=== PATIENT | female | born 1950 | race Hispanic/Latino ===

== ENCOUNTER 2024-12-19 20:27 | Inpatient (IN) | payer OTHER, SELFPAY ==
[2024-12-19] VITALS (10 sets, daily range): BP systolic 89–127; BP diastolic 47–88; BMI 26.6
[2024-12-19 16:36] LABS: ALT (SGPT) 20 U/L (0-35); AST (SGOT) 24 U/L (14-36); Albumin 4.1 g/dl (3.5-5.0); Alkaline Phosphatase 82 U/L (38-126); Blood Urea Nitrogen 13 mg/dl (7-17); Calcium 8.8 mg/dl (8.4-10.2); Carbon Dioxide 23 mmol/L (22-30); Chloride 97 mmol/L (98-107); Glucose 133 mg/dl (70-99); Potassium 3.6 mmol/L (3.5-5.1); Sodium 131 mmol/L (135-145); Total Bilirubin 1.3 mg/dl (0.2-1.3); eGFR > 60.00
[2024-12-19 16:44] LABS: % Basophils 0.3 % (0-2); % Immature Granulocytes 0.9 % (0-0.5); % Monocytes 6.2 % (1.7-9.3); % Neutrophils 84.6 % (42.2-75.2); Absolute Basophils 0.1 10^3/uL (0-0.2); Absolute Immature Granulocytes 0.2 10^3/uL (0-0.05); Absolute Lymphocytes 1.7 10^3/uL (1.2-3.4); Absolute Monocytes 1.3 10^3/uL (0.1-0.6); Absolute Neutrophils 17.7 10^3/uL (1.4-6.5); COVID-19 Antigen Negative (Negative); Hematocrit 33.2 % (37.0-47.0); Hemoglobin 11.3 g/dL (12.0-16.0); Mean Corpuscular Hgb 28.8 pg (27.0-31.0); Mean Corpuscular Volume 84.7 fL (81.0-99.0); Mean Platelet Volume 8.6 fL (7.4-10.4); Nucleated Red Blood Cells % 0 %; Platelet Count 281 10^3/uL (130-400); Red Blood Cell Count 3.92 10^6/uL (4.20-5.40); Troponin I < 0.012 ng/ml; White Blood Cell Count 20.9 10^3/uL (4.8-10.8)
[2024-12-19] MEDS: NSS 1000 IV ×2 (18:00→23:38)
--- NOTE | 2024-12-19 18:00 | ED.GENMED ---
History of Present Illness
General
Chief Complaint: Chest Pain
Source: patient
Exam Limitations: none
Time Seen by Provider: 12/19/24 17:31
Nursing documentation reviewed up to this point in time: agreed with
History of Present Illness
History of Present Illness:
Patient is a 74-year-old female with history hypertension, hyperlipidemia presenting to the emergency department via EMS from PCP with multiple complaints today. Patient states that yesterday morning she started with fever, diffuse abdominal pain,
and severe diarrhea. Later in the day she then noticed pain into her left chest. Pain is worse with deep inspiration. Patient denies any significant cough. Patient denies any vomiting although does feel nauseous. She denies any urinary
complaints.
Patient was seen by her primary care today where she supposedly had a normal EKG although primary care was concerned and sent her to the emergency department for further evaluation.
Patient does report a history of pneumonia in the past.
Review of Systems
Review of Systems
Allergies reviewed?: Yes
All Other Systems: ROS reviewed and negative except as documented in HPI and ROS
Phy Exam
Physical Exam
Physical Exam:
Vitals: BP soft, tachycardic, temp 99.5
General: Patient is in no apparent distress
Skin: Warm and dry, no rashes or lesions
Head: Normocephalic, atraumatic
Eyes: Sclera nonicteric. EOMs intact. No nystagmus.
Throat: Dry mucous membranes. Protecting airway
Neck: Normal ROM, no cervical spine tenderness, no meningismus
Cardiac: Tachycardic, normal rhythm, no murmurs.
Pulm: Tachypneic, lungs clear bilaterally. Not hypoxic
Abdomen: Abdomen soft. Mild diffuse abdominal tenderness without rebound tenderness or guarding.
Extremities: No evidence of cyanosis or edema. Palpable DP pulses bilaterally
Neuro: AAOx3. Grossly intact.
Psychiatric: Normal affect.
Scores
Heart Score for Chest Pain Patients
STEMI patient?: No
History: Slightly or Non-Suspicious
ECG: Nonspecific Repolarization
Age: >/= 65 years
Risk Factors: 1 or 2 Risk Factors
Troponin: </= Normal Limit
Heart Score for Chest Pain Patients: 4
Heart Score Risk: 20.3% MACE over next 6 weeks
Course
Orders/Labs/Results
Orders:
Orders
12/19/24 Dinner
NPO
Allow oral meds: Yes
Allow clear liquids: Sips of Clears
12/19/24 15:54
Electrocardiogram (*1) Urgent
Reason for Study: Chest Pain
EKG- Treatment ONCE
12/19/24 16:07
COVID-19 Antigen Urgent
Source: Nasal Swab
Complete Blood Count/With Diff Urgent
Comprehensive Metabolic Panel Urgent
Troponin I Urgent
Influenza A+B Rapid Molecular Urgent
HUMBERTO Source: Nasal Swab
Specimen Description:
12/19/24 17:44
0.9% Sodium Chloride 1000 ml [Nss] 1,000 ml IV BOLUS
Ketorolac [Toradol] 15 mg IV NOW STA
CR Chest - 2 Views Urgent
Comment:
Reason For Exam: left sided chest pain, cough
12/19/24 17:46
CT Abd/pelvis W Iv Cont Urgent
Comment:
Reason For Exam: diffuse abdominal pain, diarrhea, fever
D-Dimer Urgent
Lactic Acid Urgent
12/19/24 17:47
Blood Culture Urgent
HUMBERTO Source: Blood/Venous
Specimen Description:
Date Specimen was Collected: 12/19/24
Time Specimen was Collected: 17:45
12/19/24 19:44
Azithromycin 500 mg/250 ml [Zithromax Infusion] 500 mg in 250 ml IV NOW
CefTRIAXone [Rocephin] 1,000 mg IV NOW STA
12/19/24 19:47
Norovirus by PCR Urgent
HUMBERTO Source: Feces/Stool
Specimen Description:
12/19/24 20:11
Admit/Transfer Patient As Directed
Co-Sign Provider:
Level of Care: Inpatient admission
Assign to:: Medical/Surgical
Physician / Group: sruthi
Diagnosis: sepsis
Reason for Hospitalization: sepsis pnuemonia, gastroenteritis
Expected length of stay greater than two midnights?: Yes
ELOS- Estimated Length of Stay in days: 2
I certify the patient meets the requirements for IP care: Yes
PRN Pain Medication Management As Directed
May give lesser potent ordered pain med per pt: Yes
preference::
Protocol:: Medication orders for pain may be administered in a
manner that supports deferring to patient preference
when the pt is:
- Requesting an ordered lesser potent pain medication.
Least to most potent pain medications are defined
as: acetaminophen < NSAID < tramadol < opioids
(morphine, oxycodone, hydromorphone).
- Requesting a lesser dose of the same medication IF
ORDERED.
- Requesting a less intrusive route of administration
if both routes are prescribed by the provider (PO <
IV).
12/19/24 20:12
Code Status As Directed
Resuscitation Status: Full Code
12/19/24 20:15
Stool Culture Urgent
HUMBERTO Source: Feces/Stool
Specimen Description:
12/19/24 20:42
Urinalysis Reflex To Culture Urgent
Date Specimen was Collected: 12/19/24
Time Specimen was Collected: 20:42
12/19/24 21:13
0.9% Sodium Chloride 1000 ml [Nss] 1,000 ml IV 100 mls/hr
Acetaminophen [Tylenol] 650 mg PO Q4HPRN PRN
Albuterol [ProAIR HFA INHALER] 2 puff INH R Q6HPRN PRN
Ondansetron Injectable [Zofran] 4 mg IV Q6HPRN PRN
triamcinolone acetonide 1 applic TOPICAL BIDPRN PRN
12/19/24 21:13
Activity As Directed
Activity Level: As Tolerated
Vital Signs As Directed
Frequency: Per unit guidelines
DX Deep Vein Thrombosis Video Routine
12/19/24 22:00
Atorvastatin [Lipitor] 10 mg PO HS
Meloxicam [Mobic] 7.5 mg PO HS
12/19/24 22:16
Carboxymethylcellulose [Refresh Celluvisc Gel] 1 drops BOTH EYES DAILYPRN PRN
12/20/24 06:00
Complete Blood Count/With Diff IN AM
Comprehensive Metabolic Panel IN AM
12/20/24 08:00
FLUTICASONE PROPIONATE 110 mcg [Flovent 110 Mcg Inhaler] 1 puff INH R BID
Heparin 5,000 units SC Q12
12/20/24 20:00
Azithromycin 500 mg/250 ml [Zithromax Infusion] 500 mg in 250 ml IV Q24H
CefTRIAXone [Rocephin] 1,000 mg IV Q24H
Abnormal Lab Results
12/19/24 12/19/24
16:07 17:46
WBC 20.9 H 10^3/uL
(4.8-10.8)
RBC 3.92 L 10^6/uL
(4.20-5.40)
Hgb 11.3 L g/dL
(12.0-16.0)
Hct 33.2 L %
(37.0-47.0)
Abs Immat Gran (auto) 0.2 H 10^3/uL
(0-0.05)
Absolute Neuts (auto) 17.7 H 10^3/uL
(1.4-6.5)
Absolute Monos (auto) 1.3 H 10^3/uL
(0.1-0.6)
Immature Gran % 0.9 H %
(0-0.5)
Neutrophils % 84.6 H %
(42.2-75.2)
Lymphocytes % 8.0 L %
(20.5-51.1)
D-Dimer 0.83 H ug/mlFEU
(0.00-0.50)
Sodium 131 L mmol/L
(135-145)
Chloride 97 L mmol/L
(98-107)
Glucose 133 H mg/dl
(70-99)
12/19/24 16:07
12/19/24 16:07
Vital Signs
Initial and Last Documented VS:
Initial Vital Signs
Temp Pulse Resp BP Pulse Ox
99.5 F 106 18 126/66 98
12/19/24 15:48 12/19/24 15:48 12/19/24 15:48 12/19/24 15:48 12/19/24 15:48
Last Documented Vital Signs
Temp Pulse Resp BP Pulse Ox
97.8 F 80 16 100/61 98
12/19/24 23:50 12/20/24 00:01 12/20/24 00:01 12/19/24 22:28 12/20/24 00:01
MDM/Problems Addressed
Differential Diagnosis Includes:
Not limited to: Sepsis, diverticulitis, appendicitis, cholecystitis, pneumonia, pericarditis, pulmonary embolism, etc.
MDM/Problems Addressed:
74-year-old presenting with fever, abdominal pain, diarrhea since yesterday. Also reports chest pain starting yesterday. No shortness of breath or vomiting. BP soft on arrival and tachycardic. Otherwise vital signs stable. Physical exam as
above. Patient appears dry. Tachycardic, with normal sinus rhythm. Lungs clear bilaterally on exam. Abdomen soft with diffuse abdominal tenderness. Labs initiated in triage significant for a leukocytosis of 20.9. Chemistry shows mild
hyponatremia. Differential broad although concern for sepsis given vital signs and leukocytosis. Given chest pain which is described as pleuritic�will check troponin, D-dimer, and chest x-ray. Will obtain CT imaging of abdomen/pelvis, as well and
check urinalysis. Will add on lactic acid and blood cultures. Patient given a liter of IV fluids and dose of Toradol. Will closely monitor and reassess.
Update: Troponin undetectable. D-dimer very mildly elevated once age-adjusted. Lactic acid normal CT abdomen/pelvis report reveals likely enteritis without other acute process. Chest x-ray with opacity in left upper lobe suspicious for possible
pneumonia. Given pneumonia visualized on x-ray�this would explain patient's chest discomfort. Unlikely very low suspicion for PE at this point. Will hold on CT scan as patient has already received a full contrast load with CT abdomen/pelvis. GI
symptoms likely from viral gastroenteritis. Patient does meet sepsis criteria with tachycardia, tachypnea, leukocytosis, and pneumonia on imaging. She remains mildly tachycardic despite IV fluids. Ultimately�feel patient should be admitted for
further fluid resuscitation, IV antibiotics. Will give IV Rocephin/azithromycin in emergency department. Patient accepted to hospital service in stable condition with urinalysis pending. Case seen with attending physician.
Chronic conditions affecting care:
Hypertension
Acute Exacerbation and/or Progression of Chronic Illness:
Pneumonia
*Radiology
Radiology exam reviewed: preliminary read by ED provider (Chest x-ray reviewed by me-opacity in left upper lobe) and radiology read reviewed
*Pulse Oximetry
Patient hypoxic: no
*EKG
Interpreted by ED Provider?: Yes
EKG Intrepretation Date: 12/19/24
Interpretation: abnormal
Comparison EKG: no comparison EKG present
Heart Rate: 104
Rate: tachycardiac
Rhythm: sinus
[place]: normal axis
Interval: normal QT interval
QRS Pattern: normal QRS
Ischemia: non-specific ST changes
*[employer] Teacher Interpretation
Rate: tachycardiac
Interpretation: abnormal
Heart Rate: 108
Rhythm: sinus
*Critical Care Note
Total Time (30-74mins, 75-104mins- exclusive of procedures): Not Applicable
Patient Management
Discussion with other providers: Hospitalist
Escalation/DeEscalation of care consider admission/obs:
Admit for IV antibiotics, further fluid resuscitation
ED Attending Note
-
Portions of this chart may have been created with voice recognition software.� Occasional wrong word or��sound alike� substitutions may have occurred due to the inherent limitations of voice recognition software.
Discharge Plan
Departure
Patient Disposition: Admit
Date of Disposition: 12/19/24
Time of Disposition: 19:47
Presentation/result/management discussed w/ accepting MD/DO: Hospitalist
Condition: Good
Covid-19: Negative COVID-19
Discharge Problem:
Sepsis, Community acquired pneumonia, Enteritis
Interventions
Interventions:
*Risk Screen - Suicide Last Done: 12/19/24 15:53
*General Assessment Last Done: 12/19/24 15:48
*Neglect/Abuse Screening Last Done: 12/19/24 15:48
*ED- Fall Risk Assessment Last Done: 12/19/24 17:49
*ED COVID-19 Vaccine History Last Done: 12/19/24 17:49
ED- Cardiac Assessment Last Done: 12/19/24 17:49
[2024-12-19 18:10] LABS: D-Dimer 0.83 ug/mlFEU (0.00-0.50); Lactic Acid 1.6 mmol/L (0.7-2.0)
[2024-12-19] MEDS: TORADOL 15 MG IV (18:30)
--- NOTE | 2024-12-19 20:15 | HPS.HSE ---
Addendum entered and electronically signed by Mindy Kee MD 12/19/24 22:46:
Age adjusted D-dimer higher than cutoff of 0.73. However presentation suggesting low pretest probability of PE.
Original Note:
Family Physician
-
Family Physician: Hilda Escalante MD
Chief Complaint
-
diarrhea, vomiting, shortness of breath
History of Present Illness
74-year-old female past medical history of hypertension, COPD, hyperlipidemia, presenting with chest pain worse with breathing, slight cough, fever, abdominal pain and diarrhea starting yesterday. Denies any recent travel or restaurant food. No
sick contacts. No recent antibiotics.
She states she had pneumonia last year.
She denies any smoking history in the past. Denies alcohol.
Medical History
Past Medical History
Past Medical History: Reports Other (hypertension, COPD, hyperlipidemia,)
Past Surgical History: Reports Other (Hernia repair)
Social History
Tobacco: Non-smoker
Alcohol: None
Drug: None
Family History
Family History: Not pertinent
Allergies / Home Medications
Allergies reflects when Allergies were last updated in [facility].
Home Medications with original date entered in [facility]
Allergy/Medication List:
Allergies
Allergy/AdvReac Type Severity Reaction Status Date / Time
No Known Allergies Allergy Unverified 12/19/24 15:48
Home Medications
acetaminophen 500 mg tablet (Tylenol Extra Strength) 500 mg PO Q6HPRN PRN mild pain 12/19/24
albuterol sulfate 90 mcg/actuation aerosol inhaler 2 puff inhalation R Q6HPRN PRN sob 12/19/24
amlodipine 5 mg tablet 5 mg PO HS 12/19/24
atorvastatin 10 mg tablet 10 mg PO HS 12/19/24
carboxymethylcellulose sodium 0.5 % eye drops (Refresh Tears) 1 drp BOTH EYES DAILYPRN PRN dry eyes 12/19/24
fluticasone propionate 110 mcg/actuation HFA aerosol inhaler 1 puff inhalation R BID 12/19/24
meloxicam 7.5 mg tablet 7.5 mg PO HS 12/19/24
triamcinolone acetonide 0.1 % dental paste 1 applic dental BIDPRN PRN mouth sore 12/19/24
Review of Systems
-
History Source: Patient
A 12 point ROS was completed and negative except as noted: Yes
Constitutional: Reports No Symptoms
EENT: Reports No Symptoms
Respiratory: Reports See HPI
Cardiac: Reports No Symptoms
Abdomen/GI: Reports See HPI
: Reports No Symptoms
Musculoskeletal: Reports No Symptoms
Skin: Reports No Symptoms
Neurological: Reports No Symptoms
Endocrine: Reports No Symptoms
Hematologic/Lymphatic: Reports No Symptoms
Psych: Reports No Symptoms
Physical Exam
Vital Signs
Vital Signs
Temp Pulse Resp BP Pulse Ox
99.5 F 84 36 126/55 96
12/19/24 15:48 12/19/24 19:30 12/19/24 19:30 12/19/24 19:00 12/19/24 19:30
Physical Exam
General: Well Developed, Well Nourished and No Apparent Distress
HEENT: NormoCephalic, Moist mucous membranes and Atraumatic
Respiratory: Clear
Cardiac: S1/S2 and Regular Rhythm; No Murmur or Rub
GI: Soft, Non Distended, Normal Bowel Sounds and Tender (diffusely); No Organomegaly
Rectal: Deferred by Provider
Musculoskeletal: No Clubbing, No Cyanosis and No Edema
Skin: No Rash
Neuro: Nonfocal/grossly intact
Laboratory Results
-
12/19/24 16:07
12/19/24 16:07
Laboratory Results
Lactic Acid 1.6 mmol/L (0.7-2.0) 12/19/24 17:46
Total Bilirubin 1.3 mg/dl (0.2-1.3) 12/19/24 16:07
AST 24 U/L (14-36) 12/19/24 16:07
ALT 20 U/L (0-35) 12/19/24 16:07
Alkaline Phosphatase 82 U/L (38-126) 12/19/24 16:07
Troponin I Cancelled 12/19/24 17:46
Data Reviewed
-
Lab Data: Labs Reviewed by me
Old Records: Reviewed
Impression/Plan
-
IMPRESSION:
PLAN:
# Sepsis (leukocytosis, tachycardia, hypotension) secondary to community-acquired pneumonia/gastroenteritis
-See individually below
# Acute gastroenteritis likely viral
-CT abdomen pelvis shows no obstruction, possible enteritis
-N.p.o.
-IV fluids
-Blood cultures pending
-Stool studies pending
# Community-acquired pneumonia
-COVID and influenza negative
-Ceftriaxone/azithromycin
Essential hypertension
-Hold amlodipine
COPD
-Continue albuterol
Hyperlipidemia
-Continue statin
Full code
DVT prophylaxis�heparin
N.p.o.
[2024-12-19] MEDS: ROCEPHIN 1000 MG IV (20:34)
[2024-12-19] MEDS: ZITHROMAX INFUSION 250 IV (20:35)
[2024-12-19 20:50] LABS: Urine Albumin 3+ (Neg - Trace); Urine Bilirubin Negative (Negative); Urine Character Clear (Clear); Urine Color Yellow; Urine Glucose Negative (Negative); Urine Ketone 2+ (Negative); Urine Leukocyte 2+ (Negative); Urine Nitrite Negative (Negative); Urine Occult Blood 2+ (Negative); Urine Urobilinogen 1+ (Neg - 1+)
[2024-12-19 20:58] LABS: Urine Bacteria Many (Negative)
[2024-12-19] MEDS: LIPITOR 10 MG PO (23:38)
[2024-12-19] MEDS: MOBIC 7.5 MG PO (23:38)
[2024-12-19] MEDS: TYLENOL 650 MG PO (23:44)
[2024-12-19] MEDS: FLOVENT 110 MCG INHALER 1 PUFF INH (23:57)
[2024-12-19] MEDS: ProAIR HFA INHALER 2 PUFF INH (23:57)
[2024-12-20 05:16] LABS: % Basophils 0.3 % (0-2); % Immature Granulocytes 0.7 % (0-0.5); % Lymphocytes 7.8 % (20.5-51.1); % Monocytes 6.9 % (1.7-9.3); % Neutrophils 84.3 % (42.2-75.2); Absolute Basophils 0.1 10^3/uL (0-0.2); Absolute Immature Granulocytes 0.1 10^3/uL (0-0.05); Absolute Lymphocytes 1.3 10^3/uL (1.2-3.4); Absolute Monocytes 1.1 10^3/uL (0.1-0.6); Absolute Neutrophils 13.7 10^3/uL (1.4-6.5); Hematocrit 28.2 % (37.0-47.0); Hemoglobin 9.2 g/dL (12.0-16.0); Mean Corp Hgb Conc. 32.6 g/dL (33.0-37.0); Mean Corpuscular Hgb 28.8 pg (27.0-31.0); Mean Corpuscular Volume 88.1 fL (81.0-99.0); Mean Platelet Volume 8.5 fL (7.4-10.4); Nucleated Red Blood Cells % 0 %; Platelet Count 199 10^3/uL (130-400); Red Cell Dist. Width 13.2 % (11.5-14.5); White Blood Cell Count 16.2 10^3/uL (4.8-10.8)
[2024-12-20 06:16] LABS: ALT (SGPT) 15 U/L (0-35); AST (SGOT) 19 U/L (14-36); Albumin 2.9 g/dl (3.5-5.0); Alkaline Phosphatase 64 U/L (38-126); Blood Urea Nitrogen 15 mg/dl (7-17); Carbon Dioxide 21 mmol/L (22-30); Chloride 105 mmol/L (98-107); Estimated Creatinine Clearance 49 ml/min; Glucose 107 mg/dl (70-99); Potassium 3.3 mmol/L (3.5-5.1); Sodium 133 mmol/L (135-145); Total Protein 5.2 g/dl (6.3-8.2); eGFR > 60.00
[2024-12-20] MEDS: FLOVENT 110 MCG INHALER 1 PUFF INH ×2 (07:38→19:29)
[2024-12-20 08:00] VITALS: BP 106/61
[2024-12-20] MEDS: HEPARIN 5000 UNITS SC ×2 (08:01→20:38)
[2024-12-20] MEDS: NSS IV (08:06)
[2024-12-20] MEDS: NSS 1000 IV ×2 (10:29→20:29)
--- NOTE | 2024-12-20 11:12 | W.PN.HOSP.TC ---
Today's Communication/Plan
-
Antibiotics pending cultures.
Chest CT PE protocol.
IV fluids, monitoring for recurrent hypotension
Hold Norvasc
Assessment / Plan
Assessment / Plan
Impression:
Community-acquired pneumonia.
Mild elevation of D-dimer
Suspected acute gastroenteritis, possibly viral.
COPD.
Essential hypertension
Dyslipidemia
Plan:
Community-acquired pneumonia
Chest x-ray with left upper lobe infiltrate
Sepsis present on admission
Hypotension responding to IV fluid bolus
CURB-65 3 with 17% mortality risk warrants inpatient admission
Respiratory status stable with no requirements for supplemental oxygen
Continue antibiotics: Ceftriaxone and Zithromax
Continue mucolytic's
COPD
Unknown staging
Primary pulmonology Dr Jason Dewitt [facility] [phone]
Exam with no evidence of bronchospasm
Respiratory status stable.
Continue albuterol,
Continue inhaled steroids/fluticasone
Mild D-dimer elevation
Tachycardia and hypotension responding to IV fluids.
Hypotension and tachycardia on admission likely related to infection.
Check CT PE protocol
Reported loose stools.
Concern for viral gastroenteritis.
Reports no recent travel or antibiotic administration
Stool negative for norovirus.
Follow stool cultures.
Essential hypertension
On amlodipine. Hold given hypotension.
Dyslipidemia
Continue atorvastatin
Anticipated Discharge: 24 - 48 hours
Subjective/Interval History
-
Date of Service: December 20, 2024
Objective Data
-
Labs:
Laboratory Results
12/20/24
05:03
WBC 16.2 H
Hgb 9.2 L
Hct 28.2 L
Plt Count 199 D
Sodium 133 L
Potassium 3.3 L
Chloride 105
Carbon Dioxide 21 L
BUN 15
Creatinine 0.8
Glucose 107 H
Calcium 8.0 L
Total Bilirubin 1.0
AST 19
ALT 15
Alkaline Phosphatase 64
Vital Signs:
Vital Signs
Temp Pulse Resp BP Pulse Ox
97.9 F 71 16 106/61 98
12/20/24 08:00 12/20/24 07:46 12/20/24 07:46 12/20/24 08:00 12/20/24 08:00
Physical Exam
-
General: Well Developed and No Apparent Distress
HEENT: Normocephalic, Atraumatic and Moist Mucous Membranes
Respiratory: Clear to Auscultation
Cardiac: Regular Rhythm and S1/S2; Negative Murmur, Rub or Gallop
GI: Soft, Nontender, Nondistended and Normal Bowel Sounds; Negative Organomegaly
Rectal: Deferred by Provider
Musculoskeletal: No Clubbing, No Cyanosis and No Edema
Skin: Negative Rash
Neuro: Nonfocal/Grossly Intact
[2024-12-20] MEDS: KCL 40 MEQ PO (12:06)
[2024-12-20 15:15] VITALS: BP 136/75
--- NOTE | 2024-12-20 16:45 | TRANSFER ---
Pt being transported to floor in ed stretcher by PCT. daughter accompanying pt. reports has been sent. IVF continue to infuse without issue. plan of care continues to be followed.
[2024-12-20 16:57] VITALS: BP 155/82; BMI 24.0
--- NOTE | 2024-12-20 17:31 | PTCARENOTE ---
Received patient from ER accompanied by daughter awake alert and oriented. Oriented to room, able to have sips of clears. Patient states she has had stomach cramping and pain over last few days. Had 3 episodes loose stools so far today. Denies
any chest pain . In no distress at present. Call hickman in reach.
[2024-12-20] MEDS: STERILE WATER FOR INJECTION 10 ML IV (20:35)
[2024-12-20] MEDS: ROCEPHIN 1000 MG IV (20:38)
[2024-12-20] MEDS: ZITHROMAX INFUSION 250 IV (20:38)
[2024-12-20] MEDS: MOBIC 7.5 MG PO (21:18)
[2024-12-20] MEDS: LIPITOR 10 MG PO (21:18)
[2024-12-20 23:00] VITALS: BP 129/93
[2024-12-21 07:30] VITALS: BP 139/65
[2024-12-21] MEDS: FLOVENT 110 MCG INHALER 1 PUFF INH (07:41)
[2024-12-21] MEDS: HEPARIN 5000 UNITS SC (08:28)
[2024-12-21 09:12] LABS: % Basophils 0.2 % (0-2); % Eosinophils 0.2 % (0-6); % Immature Granulocytes 0.3 % (0-0.5); % Lymphocytes 10.6 % (20.5-51.1); % Monocytes 6.5 % (1.7-9.3); % Neutrophils 82.2 % (42.2-75.2); Absolute Lymphocytes 1.4 10^3/uL (1.2-3.4); Absolute Monocytes 0.8 10^3/uL (0.1-0.6); Absolute Neutrophils 10.5 10^3/uL (1.4-6.5); Hemoglobin 9.3 g/dL (12.0-16.0); Mean Corp Hgb Conc. 34.4 g/dL (33.0-37.0); Mean Corpuscular Volume 84.1 fL (81.0-99.0); Nucleated Red Blood Cells % 0 %; Platelet Count 267 10^3/uL (130-400); Red Blood Cell Count 3.21 10^6/uL (4.20-5.40); Red Cell Dist. Width 13.1 % (11.5-14.5); White Blood Cell Count 12.8 10^3/uL (4.8-10.8)
[2024-12-21 09:31] LABS: Blood Urea Nitrogen 9 mg/dl (7-17); Calcium 8.5 mg/dl (8.4-10.2); Carbon Dioxide 21 mmol/L (22-30); Chloride 101 mmol/L (98-107); Estimated Creatinine Clearance 63 ml/min; Glucose 85 mg/dl (70-99); Potassium 3.8 mmol/L (3.5-5.1); Sodium 133 mmol/L (135-145); eGFR > 60.00
--- NOTE | 2024-12-21 14:39 | W.DS.TRANS ---
DC Summary - Director Hospice Operations
-
Discharge Instructions:
Discharge Diagnosis/Procedures Pneumonia
Diet Regular
Others Tests CXR to follow up with left upper lobe pneumonia
Instructions:
Stand-Alone Forms:
Changes to Home Medications: Yes
Discharge Medications:
DC Medications w/original date entered in [facility]
acetaminophen 500 mg tablet (Tylenol Extra Strength) 500 mg PO Q6HPRN PRN mild pain 12/19/24
albuterol sulfate 90 mcg/actuation aerosol inhaler 2 puff inhalation R Q6HPRN PRN sob 12/19/24
amlodipine 5 mg tablet 5 mg PO HS 12/19/24
atorvastatin 10 mg tablet 10 mg PO HS 12/19/24
carboxymethylcellulose sodium 0.5 % eye drops (Refresh Tears) 1 drp BOTH EYES DAILYPRN PRN dry eyes 12/19/24
fluticasone propionate 110 mcg/actuation HFA aerosol inhaler 1 puff inhalation R BID 12/19/24
meloxicam 7.5 mg tablet 7.5 mg PO HS 12/19/24
triamcinolone acetonide 0.1 % dental paste 1 applic dental BIDPRN PRN mouth sore 12/19/24
azithromycin 500 mg tablet (Zithromax) 500 mg PO DAILY 10 days #10 tabs 12/21/24
cefuroxime axetil 500 mg tablet 500 mg PO BID #20 tabs 12/21/24
codeine 10 mg-guaifenesin 100 mg/5 mL oral liquid 5 ml PO Q4HPRN PRN cough #200 mL 12/21/24
Home Medication Changes
Antibiotics for additional 10 days
Pending Results: No
--- NOTE | 2024-12-21 14:44 | CM ---
it program manager reviewed patient's chart and met with patient and daughter and ana mariatn lives with spo, son in a 2 story home, patient is indedpent with adl's and ambulation, no dme, patient is for discharge to home today no needs.
PCP: Hilda Escalante
Pharmacy: [facility]
Plan; Home no needs.
[2024-12-21 15:29] VITALS: BP 159/80
== END 2024-12-21 16:08 | disposition home or self-care (01) | DRG 871 ==
LOC: 4 WEST ACU 20:27
PROVIDERS: Emergency Medicine; Physician Assistant; ADMITTING PHYSICIAN Hospitalist; ATTENDING PHYSICIAN Internal Medicine; EMERGENCY PHYSICIAN Emergency Medicine; FAMILY PHYSICIAN Family Medicine
DX: A41.9 Sepsis, unspecified organism (principal); J18.9 Pneumonia, unspecified organism; J44.0 Chronic obstructive pulmonary disease with (acute) lower respiratory infection; A08.4 Viral intestinal infection, unspecified; I10 Essential (primary) hypertension; E78.5 Hyperlipidemia, unspecified; I95.89 Other hypotension; Z87.01 Personal history of pneumonia (recurrent); Z11.52 Encounter for screening for COVID-19; K52.9 Noninfective gastroenteritis and colitis, unspecified
CPT/HCPCS: 71046; 71275; 74177; 80048; 80053; 81003; 81015; 83605; 84484; 85025; 85379; 87040; 87045; 87046; 87086; 87150; 87186; 87205; 87427; 87502; 87798; 87811; 93005; 93306; 94640; 96361; 96365; 96375; 99285; Q9967